=== PATIENT | female | born 1940 | race Caucasian/White ===

== ENCOUNTER 2018-04-16 00:44 | Inpatient (IN) | payer BC, MEDICARE ==
[~2018-04-16] VITALS: Ht 162.6 cm; Wt 70.0 kg
[~2018-04-16 00:44] MED LIST: OXYC15TA2 PO; PREG75CA PO
--- NOTE | 2018-04-16 00:47 | NUR ---
PT BIB [facility] FROM HOME. PER PARAMEDICS, PT CALLED HERSELF W/ C/O GENERALIZED PAIN. PER PARAMEDICS HOWEVER, PT IS IN RAPID AFIB W/ RATE IN 180'S.
--- NOTE | 2018-04-16 00:48 | NUR ---
DR OMKAR LI MD AT BEDSIDE FOR MSE.
[2018-04-16] MEDS ORDERED: IV NORMAL SALINE 1000 ML BAG IV ONE (01:00)
[2018-04-16 01:09] LABS: BASOPHILS % (AUTO) 0.2 % (0.0-2.0); EOSINOPHILS % (AUTO) 0.1 % (0.0-7.0); HEMATOCRIT 36.2 % (31.2-41.9); HEMOGLOBIN 11.7 g/dL (10.9-14.3); LYMPHOCYTES # (AUTO) 0.7 K/uL (20.0-40.0); LYMPHOCYTES % (AUTO) 4.5 % (20.5-51.5); MEAN CORPUSCULAR HEMOGLOBIN 24.1 uug (24.7-32.8); MEAN CORPUSCULAR HGB CONC 32 g/dL (32.3-35.6); MEAN CORPUSCULAR VOLUME 74.5 fL (75.5-95.3); MONOCYTES # (AUTO) 1.5 K/uL (2.0-10.0); MONOCYTES % (AUTO) 10.5 % (0.0-11.0); NEUTROPHILS # (AUTO) 12.1 K/uL (1.8-8.9); NEUTROPHILS % (AUTO) 84.7 % (38.5-71.5); PLATELET COUNT (AUTO) 222 K/uL (179-408); RED BLOOD CELL COUNT(AUTO) 4.86 MIL/uL (3.63-4.92); WHITE BLOOD COUNT (AUTO) 14.3 K/uL (3.8-11.8)
[2018-04-16 01:16] LABS: LYMPHOCYTES % (MANUAL) 5 % (20-40); MONOCYTES % (MANUAL) 10 % (2-10); NEUTROPHILS % (MANUAL) 85 % (42-75)
[2018-04-16 01:33] LABS: ALANINE AMINOTRANSFERASE 29 U/L (14-59); ALKALINE PHOSPHATASE 192 U/L (50-136); ASPARTATE AMINOTRANSFERASE 32 U/L (15-37); BILIRUBIN,DIRECT 0.5 mg/dL (0.0-0.2); BILIRUBIN,TOTAL 0.9 mg/dL (0.2-1.0); CARBON DIOXIDE 21 mmol/L (21-32); CHLORIDE 99 mmol/L (98-107); CREATININE 1.2 mg/dL (0.6-1.3); GLUCOSE 86 mg/dL (74-106); TOTAL PROTEIN, SERUM 6.4 g/dL (6.4-8.2); UREA NITROGEN, BLOOD 36 mg/dL (7-18)
[2018-04-16 01:36] LABS: POTASSIUM 2.6 mmol/L (3.5-5.1)
[2018-04-16] MEDS ORDERED: DILTIAZEM HCL 25 MG IV ONE ×2 (01:43→02:45)
[2018-04-16] MEDS ORDERED: DILTIAZEM HCL 25 MG IV IV ONE ×2 (01:45→02:30)
[2018-04-16] MEDS ORDERED: POTASSIUM CHLORIDE 20 MEQ TAB.PRT.SR PO ONE (01:45)
[2018-04-16] MEDS ORDERED: POTASSIUM CHLORIDE 20 MEQ TAB.PRT.SR ONE (01:50)
--- NOTE | 2018-04-16 01:58 | NUR ---
PT YELLING PROFANITIES AND VERBALLY ABUSING STAFF. PT ALSO RIPPED OUT IV. AWARE.
--- NOTE | 2018-04-16 02:00 | NUR ---
PATIENT DENIES TAKING ANY PRESCRIPTION MEDICATIONS
[2018-04-16] MEDS ORDERED: AZITHROMYCIN 250 MG TABLET PO ONE (02:30)
[2018-04-16] MEDS ORDERED: CEFTRIAXONE 1 G in IV DEXTROSE 5% 50 ML IV ONE (02:30)
[2018-04-16] MEDS ORDERED: AZITHROMYCIN 250 MG TABLET ONE (02:45)
[2018-04-16] MEDS ORDERED: CEFTRIAXONE 1 G VIAL ONE (02:45)
--- NOTE | 2018-04-16 03:07 | NUR ---
CALL PLACED TO [facility] FOR PANEL. DR CALDERÓN SPEAKING TO DR ESPITIA.
--- NOTE | 2018-04-16 04:01 | NUR ---
Pt. admitted to [facility], under care of Dr. CALDERÓN Belongs List completed
[2018-04-16 04:09] VITALS: BP 99/68
--- NOTE | 2018-04-16 04:10 | NUR ---
Admitted to [facility] status; to CCU # 1 bed. Does not want any of her family contacted of this admission. Read ER MD's & ER nurses notes. Awaiting Dr Dietrich's admission orders.
[2018-04-16] MEDS ORDERED: ONDANSETRON 4 MG/2 ML VIAL IV PRN (06:15)
[2018-04-16] MEDS ORDERED: ACETAMINOPHEN 325 MG TABLET PO PRN (06:15)
--- NOTE | 2018-04-16 06:30 | NUR ---
gurrola cath fr.# 16 inserted aseptically w/ cloudy ina urine. urine specimen sent to lab for ua & c&s.
[2018-04-16] MEDS: MORPHINE SULFATE 2 MG/1 ML DISP.SYRIN IV PRN ×3 (06:32→20:51)
[2018-04-16] MEDS: PANTOPRAZOLE SODIUM 40 MG TABLET.DR PO SCH (06:43)
[2018-04-16 07:19] LABS: BASOPHILS % (AUTO) 0.2 % (0.0-2.0); HEMOGLOBIN 11.5 g/dL (10.9-14.3); LYMPHOCYTES # (AUTO) 0.6 K/uL (20.0-40.0); LYMPHOCYTES % (AUTO) 3.3 % (20.5-51.5); MEAN CORPUSCULAR HEMOGLOBIN 24.1 uug (24.7-32.8); MEAN CORPUSCULAR HGB CONC 32 g/dL (32.3-35.6); MONOCYTES # (AUTO) 1.6 K/uL (2.0-10.0); MONOCYTES % (AUTO) 9.4 % (0.0-11.0); NEUTROPHILS # (AUTO) 15.3 K/uL (1.8-8.9); NEUTROPHILS % (AUTO) 87.1 % (38.5-71.5); PLATELET COUNT (AUTO) 215 K/uL (179-408); WHITE BLOOD COUNT (AUTO) 17.5 K/uL (3.8-11.8)
[2018-04-16 07:22] LABS: *BILIRUBIN,URIN NEGATIVE (NEGATIVE); *BLOOD, URINE 2+ (NEGATIVE); *CLARITY,URINE CLEAR (CLEAR); *COLOR,URINE YELLOW (YELLOW); *KETONES,URINE 1+ (NEGATIVE); *PROTEIN,URINE 1+ (NEGATIVE); *UROBILINOGEN,URINE 0.2 E.U./dl (NORMAL); LEUKOCYTE ESTERASE ,URINE NEGATIVE (NEGATIVE); NITRITE, URINE NEGATIVE (NEGATIVE); UGLUCOSE NEGATIVE (NEGATIVE)
[2018-04-16 07:32] LABS: BACTERIA,URINE FEW /HPF (NONE SEEN); SQUAMOUS EPITHELIAL CELL,UR FEW /HPF (NONE SEEN); WBC,URINE 0-3 /HPF (0-3)
[2018-04-16 07:33] LABS: MUCUS,URINE FEW /LPF (0-FEW)
[2018-04-16 07:40] LABS: CARBON DIOXIDE 21 mmol/L (21-32); CHLORIDE 103 mmol/L (98-107); GLUCOSE 89 mg/dL (74-106); UREA NITROGEN, BLOOD 29 mg/dL (7-18)
[2018-04-16 07:43] LABS: IRON, SERUM 9 ug/dL (50-175)
[2018-04-16 07:47] LABS: ALANINE AMINOTRANSFERASE 31 U/L (14-59); ALKALINE PHOSPHATASE 185 U/L (50-136); ASPARTATE AMINOTRANSFERASE 36 U/L (15-37); BILIRUBIN,TOTAL 0.8 mg/dL (0.2-1.0); CHOLESTEROL 141 mg/dL (<200); HDL CHOLESTEROL 17 mg/dL (40-60); PHOSPHOROUS 2.3 mg/dL (2.5-4.9); TOTAL PROTEIN, SERUM 5.7 g/dL (6.4-8.2); TRIGLYCERIDES 110 MG/DL (30-150)
[2018-04-16 07:48] LABS: THYROID STIMULATING HORMONE 0.099 mIU/mL (0.358-3.740)
[2018-04-16 07:54] LABS: LYMPHOCYTES % (MANUAL) 6 % (20-40); MONOCYTES % (MANUAL) 8 % (2-10); NEUTROPHILS % (MANUAL) 86 % (42-75)
[2018-04-16 08:00] VITALS: BP 111/54
[2018-04-16] MEDS ORDERED: FUROSEMIDE 20 MG/2 ML VIAL IV SCH (09:00)
--- NOTE | 2018-04-16 09:11 | NUR ---
CHRISTINA PETERSON PRIVATE CHEF IN THE UNIT TO SEE PATIENT.
--- NOTE | 2018-04-16 09:28 | NUR ---
INFORMED COLOR MAKER THAT HEART RATE FLUCTUATES BETWEEN 120'S- 130'S. PATIENT IN AFIB. NEXT CARDIZEM DOSE UNTIL 1200. HE WILL WAIT FOR CARDIO TO SEE THE PATIENT AND POSSIBLY PUT HER ON AMIODARONE DRIP IF CARDIZEM HAS NOT BEEN WORKING WHEN IN ER.
[2018-04-16] MEDS: HYDROCODONE/APAP 5-325MG TABLET PO PRN (10:08)
--- NOTE | 2018-04-16 11:27 | NUR ---
RAIL CAR REPAIRMAN IS HERE TO EVALUATE PATIENT IF NEEDS TO BE ON A HOLD.
[2018-04-16] MEDS: DILTIAZEM HCL 30 MG TABLET PO SCH ×2 (11:50→17:51)
[2018-04-16] MEDS: POTASSIUM CHLORIDE 50 ML IV SCH ×4 (11:50→20:52)
[2018-04-16 12:00] VITALS: BP 91/56
--- NOTE | 2018-04-16 12:45 | NUR ---
WOUND CARE NURSE MALCOLM IN THE UNIT. RECOMMENDS SCRAPING FOR SCABIES. INFORMED CHRISTINA FERGUSON. NEW ORDERS IN THE SYSTEM. INFORMED DORINDA AND LEFT MESSAGE THAT ASHA HOYT WILL NEED SCABIES SCRAPING.
--- NOTE | 2018-04-16 12:48 | NUR ---
WOUND CARE CONSULT: PT PRESENTS INDEPENDENT WITH BED MOBILITY. PT HAS RASH WITH LARGE AREAS OF SCRATCH CROFT ON BACK, AND BUTTOCKS WITH TINY SCABS. PT NOTED TO HAVE BLANCHABLE REDNESS TO BUTTOCKS WITH ROUGH SKIN TO BUTTOCKS. RT UPPER BACK HAS RAISED AREA, NONTENDER, NOT RED. FEW SCRATCHES ON UPPER BACK AND SHOULDER AREA. DEFER TO M D/DNP FOR RASH AND RAISED AREA. CURRENT LADAN SCORE IS 22. WILL SEE PRN. RECOMMENDATIONS MADE FOR SKIN PROTECTION. DISCUSSED WITH NURSING STAFF. Addendum: 04/16/18 at 1255 by MALCOLM WRIGHT RN Amended: Links added.
[2018-04-16] MEDS ORDERED: Z GUARD REMEDY PASTE 57 GM TUBE TOP PRN (13:00)
--- NOTE | 2018-04-16 14:01 | NUR ---
Supervisor Photoengraving Consult: SW consult requested by Baggage Handler Eddie Aparicio during morning case management rounds meeting. Dr. Jaydon Villalobos present and aware. 11:05am: SW met with CASINO CHANGE ATTENDANT Alysia to discuss case. 11:15am: SW met with patient in her ICU room. Patient was receptive to meeting with SW and greeted SW appropriately. SW interviewed patient and gathered medical and social history from the patient. Patient is a 78 year old female who lives alone in a house. Patient stated that she is able to walk in her home with a FWW, but is unable to bathe independently and unable to manage her carbonation tester. Patient stated that she has a friend, Day Bell, who visits her once a week, or once every 10 days, and brings her groceries and does some housecleaning for her. Patient stated that she is unable to get into the bathtub/shower and therefore sits on the toilet while Day helps her bathe. Patient stated that she has been suffering from "body aches" and that she fell at home yesterday, however was able to call the paramedics, who brought her in to the hospital. Patient reported hx of multiple falls. According to staff reports, paramedics had stated that they found patient covered in urine and her hygiene was in poor condition. According to nursing reports, skin rashes and possible bug bite abrasions cover patient's back and buttocks. Patient stated that she may have urinated on herself after she fell, however was unable to confirm the other reports. Patient reported not having had medical care for several years and therefore not knowing what medical problems she suffers from except body/join pain. Patient stated she is currently not taking any prescription medication. Patient reported no history of illegal drug or alcohol use, however reported that many years ago she did abuse pain medications. No SI or HI present. Hx of previous hospitalizations (see medical records). When SW inquired about these hospitalizations, patient expressed not remembering them. Patient alert, able to provide accurate history. Patient reported that she is a , had one daughter and one grandson who are , however has 2 granddaughters who are listed as emergency contacts. Patient stated contacting granddaughter Radha Smith [phone] for emergencies and care coordination. SW generated a discussion to explore patient's discharge plans, and patient expressed concern about being able to continue to live at home alone. Patient stated that she feels it may be time for her to consider placement in a SNF or assisted living facility. Patient stated that she receives about $1400/month from social security, and also has a small pension. SW offered for patient to meet with the complex case manager in order to discuss placement options and patient expressed agreement. SW to refer to complex case manager Donna for discharge planning. SW to also make an APS referral for self-neglect. 11:45am: MARQUIS met with complex case manager Donna and discussed all above with her. Donna to meet with patient and coordinate with family for discharge planning options. MARQUIS also informed Baggage Handler Eddie Aparicio of above plan, and that SW will be making APS report. Eddie was in agreement.
--- NOTE | 2018-04-16 15:24 | NUR ---
called frank to notify that there is not anyone available to do scabies scraping today. waiting for call back regarding if he wants to treat the patient or wait until the patient can have scraping procedure done
--- NOTE | 2018-04-16 15:25 | NUR ---
APS report completed by this SW. Report # [id number].
[2018-04-16 15:59] VITALS: BP 91/47
[2018-04-16] MEDS ORDERED: NEUTRA PHOS PACKET PO ONE (16:30)
--- NOTE | 2018-04-16 17:56 | NUR ---
POTASSIUM NEEDED TO BE INFUSED VERY SLOW DUE TO PATIENT COMPLAINING OF IRRITATION UPON INFUSION AT 50ML/HR. POTASSIUM RUNNING AT 15ML/HR.
--- NOTE | 2018-04-16 17:58 | NUR ---
PATIENT COMPLAINING OF ITCHING ELIMITE TREATMENT APPLIED AT THIS TIME.
[2018-04-16] MEDS ORDERED: IV NS 1000 ML 1,000 ML IV ONE (19:30)
[2018-04-16 20:00] VITALS: BP 91/56
[2018-04-16] MEDS: CEFTRIAXONE 1 G in IV DEXTROSE 5% 50 ML IV SCH (20:52)
[2018-04-16] MEDS: AZITHROMYCIN IV 500 MG in IV DEXTROSE 5% 250 ML IV SCH (20:52)
[2018-04-16] MEDS: Z GUARD REMEDY PASTE 57 GM TUBE TOP SCH (20:53)
[2018-04-16] MEDS ORDERED: PERMETHRIN 5% CREAM 60 GM TUBE TP ONE (21:00)
[2018-04-16] MEDS: IV NS 1000 ML 1,000 ML IV PRN (22:01)
[2018-04-17] VITALS (7 sets, daily range): BP systolic 97–120; BP diastolic 48–72
[2018-04-17] MEDS: DILTIAZEM HCL 30 MG TABLET PO SCH ×5 (00:14→17:16)
[2018-04-17] MEDS: MORPHINE SULFATE 2 MG/1 ML DISP.SYRIN IV PRN ×3 (03:34→19:44)
[2018-04-17 05:11] LABS: BASOPHILS % (AUTO) 0.1 % (0.0-2.0); EOSINOPHILS # (AUTO) 0.1 K/uL (0.0-0.7); EOSINOPHILS % (AUTO) 0.4 % (0.0-7.0); HEMATOCRIT 31.2 % (31.2-41.9); HEMOGLOBIN 10.1 g/dL (10.9-14.3); LYMPHOCYTES # (AUTO) 0.9 K/uL (20.0-40.0); LYMPHOCYTES % (AUTO) 6.7 % (20.5-51.5); MEAN CORPUSCULAR HEMOGLOBIN 24.1 uug (24.7-32.8); MEAN CORPUSCULAR HGB CONC 32 g/dL (32.3-35.6); MEAN CORPUSCULAR VOLUME 74.7 fL (75.5-95.3); MONOCYTES # (AUTO) 1.4 K/uL (2.0-10.0); MONOCYTES % (AUTO) 10.3 % (0.0-11.0); NEUTROPHILS # (AUTO) 11.3 K/uL (1.8-8.9); NEUTROPHILS % (AUTO) 82.5 % (38.5-71.5); PLATELET COUNT (AUTO) 181 K/uL (179-408); RED BLOOD CELL COUNT(AUTO) 4.18 MIL/uL (3.63-4.92); WHITE BLOOD COUNT (AUTO) 13.7 K/uL (3.8-11.8)
[2018-04-17 05:18] LABS: CARBON DIOXIDE 22 mmol/L (21-32); CHLORIDE 103 mmol/L (98-107); CREATININE 0.8 mg/dL (0.6-1.3); GLUCOSE 93 mg/dL (74-106); POTASSIUM 3.3 mmol/L (3.5-5.1); UREA NITROGEN, BLOOD 26 mg/dL (7-18)
[2018-04-17 06:08] LABS: BAND % (MANUAL) 1 % (0-10); EOSINOPHILS % (MANUAL) 1 % (0-8); LYMPHOCYTES % (MANUAL) 6 % (20-40); MONOCYTES % (MANUAL) 10 % (2-10); NEUTROPHILS % (MANUAL) 82 % (42-75)
[2018-04-17] MEDS: PANTOPRAZOLE SODIUM 40 MG TABLET.DR PO SCH (06:37)
[2018-04-17] MEDS: Z GUARD REMEDY PASTE 57 GM TUBE TOP SCH ×2 (08:25→20:34)
[2018-04-17] MEDS: HYDROCODONE/APAP 5-325MG TABLET PO PRN ×3 (08:28→21:49)
--- NOTE | 2018-04-17 10:15 | NUR ---
RECEIVED PT FROM CCU, A&O TIMES 3. PT IS NOTED WITH A BARREL CHEST, NO IMMEDIATE S/S OF PAIN, OR DISTRESS, NOTED ACCESSORY MUSCLE USE. PT IS DOWN GRADED TO [facility]. ROSALES CATH IN PLACE
[2018-04-17] MEDS: POTASSIUM CHLORIDE 50 ML IV SCH ×4 (12:56→16:34)
[2018-04-17] MEDS: IV NS 1000 ML 1,000 ML IV PRN (13:01)
--- NOTE | 2018-04-17 17:00 | NUR ---
PT HAS BEEN GRADED TO TELE BY DR NAIR.
--- NOTE | 2018-04-17 19:42 | NUR ---
PT HAS BEEN COMPLIANT WITH NURSING CARE AND MEDICATIONS. NO IMMEDIATE S/S OF SOB, OR DISTRESS.
--- NOTE | 2018-04-17 19:44 | NUR ---
PATIENT CALLED REQUESTING FOR PAIN MEDS . PER PATIENT HER BACK /KNEES AND HIP HURTS LEVEL OF 8 OVER 10 , GIVEN NORCO TOLERATED WITH WATER ,TURNED AND REPOSITION PATIENT TOA COMFORTABLE POSITION HOB UP . NO RESPIRATORY DISTRESS NTOES TOLERATING 02 NASAL CANNULA IVF IN PROGRESS VIA THE RIGHT AC NORMAL SALINE AT 75 ML/HR . F/C TO BSD WITH YELLOWISH URINE . CALL [facility] AND ADVISED PATIENT TO CALL FOR HELP AND NOT TO GET OOB BY SELF ,PATIENT VERBALIZED UNDERSTANDING .
[2018-04-17] MEDS: CEFTRIAXONE 1 G in IV DEXTROSE 5% 50 ML IV SCH (20:32)
[2018-04-17] MEDS: AZITHROMYCIN IV 500 MG in IV DEXTROSE 5% 250 ML IV SCH (20:32)
[2018-04-17] MEDS: ZOLPIDEM 5 MG TABLET PO PRN (21:48)
--- NOTE | 2018-04-17 21:48 | NUR ---
PATIENT CALLED AND NEEDS ATTENDED TO , PER PATIENT HER BACK /KNEES AND HIPS HURTING HER AGAIN AND SHES REQUESTING FOR SLEEPING MEDICATION . GIVEN NORCO FOR PAIN PO AND AMBIEN FOR SLEEPING MEDS .AGAIN REPOSITION PATIENT FOR COMFORT ,ASKED FOR ANOTHER BLANKET PROVIDED AND WATER PITCHER FILLED WITH WATER . CALL LIGHT PLACED WITH IN REACH AND ADVISED TO USED .
[2018-04-18] VITALS (7 sets, daily range): BP systolic 102–140; BP diastolic 60–81
[2018-04-18] MEDS: DILTIAZEM HCL 30 MG TABLET PO SCH ×4 (00:25→18:00)
[2018-04-18 05:08] LABS: TRIIODOTHYRONINE, FREE 1.7 pg/mL (2.0-4.4)
[2018-04-18] MEDS: MORPHINE SULFATE 2 MG/1 ML DISP.SYRIN IV PRN ×4 (05:22→22:46)
--- NOTE | 2018-04-18 05:22 | NUR ---
PER PATIETN IS WOKE UP WITH PAIN ,KNEES /BACK AND HIP AREA ,8/10 SHARP PAIN MEEIDCATED WITH MORPHINE PRN . CONTINUE TO MONITOR LEVELS OF PAIN .
[2018-04-18] MEDS: PANTOPRAZOLE SODIUM 40 MG TABLET.DR PO SCH (06:42)
--- NOTE | 2018-04-18 07:40 | NUR ---
RECEIVED PT IN A HIGH ARROYO POSITION SLEEPING. IV HYDRATION RUNNING. NOTED PT REMOVE HER NC. NO IMMEDIATE S/S OF SOB, PAIN, DISTRESS OR DISCOMFORT NOTED
[2018-04-18] MEDS: HYDROCODONE/APAP 5-325MG TABLET PO PRN ×2 (08:39→20:32)
[2018-04-18] MEDS: Z GUARD REMEDY PASTE 57 GM TUBE TOP SCH ×2 (08:45→20:00)
[2018-04-18 09:23] LABS: BASOPHILS % (AUTO) 0.3 % (0.0-2.0); EOSINOPHILS # (AUTO) 0.2 K/uL (0.0-0.7); LYMPHOCYTES # (AUTO) 1.5 K/uL (20.0-40.0); NEUTROPHILS # (AUTO) 10.4 K/uL (1.8-8.9)
[2018-04-18 09:24] LABS: CARBON DIOXIDE 21 mmol/L (21-32); CHLORIDE 102 mmol/L (98-107); CREATININE 0.7 mg/dL (0.6-1.3); GLUCOSE 129 mg/dL (74-106); MAGNESIUM 2.1 mg/dL (1.8-2.4); POTASSIUM 4.4 mmol/L (3.5-5.1); UREA NITROGEN, BLOOD 17 mg/dL (7-18)
[2018-04-18 09:29] LABS: EOSINOPHILS % (AUTO) 1.8 % (0.0-7.0); HEMATOCRIT 35.7 % (31.2-41.9); HEMOGLOBIN 11.4 g/dL (10.9-14.3); MEAN CORPUSCULAR HGB CONC 32 g/dL (32.3-35.6); MEAN CORPUSCULAR VOLUME 75.4 fL (75.5-95.3); MONOCYTES % (AUTO) 7.8 % (0.0-11.0); NEUTROPHILS % (AUTO) 79.1 % (38.5-71.5); PLATELET COUNT (AUTO) 295 K/uL (179-408); RED BLOOD CELL COUNT(AUTO) 4.73 MIL/uL (3.63-4.92); WHITE BLOOD COUNT (AUTO) 13.2 K/uL (3.8-11.8)
--- NOTE | 2018-04-18 11:20 | NUR ---
NEW IV LINE STARTED ON THE RIGHT HAND 22G. PT TOLERATED PROCEDURE WELL. ONE TIME TRY. PT STATED NO PAIN. FLUSHED WELL
[2018-04-18] MEDS: IV NS 1000 ML 1,000 ML IV PRN (11:32)
[2018-04-18] MEDS ORDERED: NEUTRA PHOS PACKET PO ONE (12:00)
--- NOTE | 2018-04-18 19:30 | NUR ---
PT ALERT AWAKE IN NO ACUTE DISTRESS. DENIES ANY PAIN, DISCOMFORT OR SOB AT THIS TIME. YOKER MACHINE OPERATOR SHOWING A-FIB CONTROLLED WITH HR 104. ABLE TO MAKE NEEDS KNOWN. MAINTAINING OXYGEN AT 2L/MIN VIA N/C. F/C INTACT DRAINING WELL. WILL CONTINUE TO MONITOR. CALL LIGHT WITHIN REACH. PT AWARE OF STOOL NEEDED TO BE COLLECTED. BED LOCKED AND LOWERED WITH 2 SIDE RAILS RAISED. CONTACT ISOLATION REMAINED AT THIS TIME. NO INCREASED REDNESS OR TO RASH ON BACKSIDE.
[2018-04-18] MEDS: CEFTRIAXONE 1 G in IV DEXTROSE 5% 50 ML IV SCH (20:01)
[2018-04-18] MEDS: AZITHROMYCIN IV 500 MG in IV DEXTROSE 5% 250 ML IV SCH (20:32)
[2018-04-19] MEDS: HYDROCODONE/APAP 5-325MG TABLET PO PRN ×4 (00:30→20:27)
[2018-04-19] MEDS: DILTIAZEM HCL 30 MG TABLET PO SCH ×4 (00:33→17:37)
[2018-04-19] MEDS: ZOLPIDEM 5 MG TABLET PO PRN (00:35)
[2018-04-19 03:43] VITALS: BP 128/59
[2018-04-19] MEDS: PANTOPRAZOLE SODIUM 40 MG TABLET.DR PO SCH (06:05)
[2018-04-19 06:08] LABS: BASOPHILS % (AUTO) 0.4 % (0.0-2.0); EOSINOPHILS # (AUTO) 0.3 K/uL (0.0-0.7); HEMATOCRIT 32.1 % (31.2-41.9); HEMOGLOBIN 10.4 g/dL (10.9-14.3); LYMPHOCYTES # (AUTO) 1.3 K/uL (20.0-40.0); LYMPHOCYTES % (AUTO) 12.7 % (20.5-51.5); MEAN CORPUSCULAR HEMOGLOBIN 24.4 uug (24.7-32.8); MEAN CORPUSCULAR HGB CONC 33 g/dL (32.3-35.6); MEAN CORPUSCULAR VOLUME 74.9 fL (75.5-95.3); MONOCYTES # (AUTO) 1.2 K/uL (2.0-10.0); MONOCYTES % (AUTO) 11.5 % (0.0-11.0); NEUTROPHILS # (AUTO) 7.7 K/uL (1.8-8.9); NEUTROPHILS % (AUTO) 72.4 % (38.5-71.5); PLATELET COUNT (AUTO) 316 K/uL (179-408); RED BLOOD CELL COUNT(AUTO) 4.28 MIL/uL (3.63-4.92); WHITE BLOOD COUNT (AUTO) 10.6 K/uL (3.8-11.8)
[2018-04-19 06:19] LABS: CARBON DIOXIDE 28 mmol/L (21-32); CHLORIDE 105 mmol/L (98-107); CREATININE 0.9 mg/dL (0.6-1.3); GLUCOSE 113 mg/dL (74-106); UREA NITROGEN, BLOOD 17 mg/dL (7-18)
[2018-04-19] MEDS: MORPHINE SULFATE 2 MG/1 ML DISP.SYRIN IV PRN ×4 (06:28→22:29)
--- NOTE | 2018-04-19 06:53 | NUR ---
PT'S TELEMETRY STILL PRESENT WITH A-FIB CONTROLLED WITH HR 107. STATES CHRONIC PAIN TO KNEES. ABLE TO FOLLOW SIMPLE COMMANDS. NO ADVERSE EFFECT R/T RECENT ATB IV MEDICATIONS. RASH STILL PRESENT WITH SOME SACRAL REDNESS TO BUTTOCKS. PT REPOSITIONED. MAINTAINING OXYGEN AT 2L/MIN 95% O2 SAT. MAINTAINNIG ISOLATION PRECAUTION.
[2018-04-19] MEDS: Z GUARD REMEDY PASTE 57 GM TUBE TOP SCH ×2 (09:06→20:26)
--- NOTE | 2018-04-19 09:50 | NUR ---
RECEIVED HAND OFF REPORT FROM FABRIZIO VALENZUELA. PATIENT ON BED ASLEEP, NO ACUTE DISTRESS NOTED. IV ACCESS ON RIGHT HAND #22 RUNNING IVF OF NS @ 75 CC/HR INFUSING WELL. NO COMPLAINTS OF PAIN AT THIS TIME. ROSALES CATHETER IN PLACE AND DRAINING [place] URINE. ON CONTACT ISOLATION. CALL LIGHT WITHIN REACH WILL CONTINUE TO MONITOR CLOSELY.
[2018-04-19 11:02] VITALS: BP 121/74
[2018-04-19] MEDS: IV NS 1000 ML 1,000 ML IV PRN (11:49)
[2018-04-19 15:10] VITALS: BP 124/72
--- NOTE | 2018-04-19 17:45 | NUR ---
PATIENT NOTED RIGHT HAND #22 IV ACCESS DISLODGED AND UNABLE TO FLUSH SALINE. OLD IV SITE REMOVED AND REINSERTED NEW IV SITE ON THE LEFT WRIST #22, USING ASEPTIC TECHNIQUE. RESUMED IVF INFUSING WELL WILL CONTINUE TO MONITOR JESSICA
--- NOTE | 2018-04-19 18:36 | NUR ---
Patient on bed, in stable condition. on Tele Afib w/ PVC. no complaints of pain/discomfort at this time. kept head of bed elevated to maximize lung expansion and help with breathing. on O2 @ 2lpm via NC. IVF infusing well on left wrist #22. FC in place and draining well. all needs attended and anticipated. call light within reach. will endorse accordingly.
[2018-04-19 20:24] VITALS: BP 129/75
[2018-04-19] MEDS: CEFTRIAXONE 1 G in IV DEXTROSE 5% 50 ML IV SCH (20:26)
--- NOTE | 2018-04-19 20:30 | NUR ---
PATIENT IS AWAKE IN BED, AAOX3 FORGETFUL AT TIMES C/O GENERALIZED PAIN, PAIN MEDS GIVEN ORDERED. PATIENT ON TELE WITH A-FIB RHYTHM AT 96, NO C/O CHEST PAIN OR SOB. SAFETY AND COMFORT MEASURES IN PLACE. CALL LIGHT LEFT WITHIN REACH
[2018-04-19] MEDS: AZITHROMYCIN IV 500 MG in IV DEXTROSE 5% 250 ML IV SCH (21:18)
[2018-04-20 00:06] VITALS: BP 124/88
[2018-04-20] MEDS: DILTIAZEM HCL 30 MG TABLET PO SCH ×4 (00:10→17:15)
[2018-04-20] MEDS: HYDROCODONE/APAP 5-325MG TABLET PO PRN ×3 (02:06→20:25)
[2018-04-20 04:32] VITALS: BP 120/65
[2018-04-20] MEDS: PANTOPRAZOLE SODIUM 40 MG TABLET.DR PO SCH (06:00)
[2018-04-20] MEDS: MORPHINE SULFATE 2 MG/1 ML DISP.SYRIN IV PRN (06:01)
[2018-04-20] MEDS: IV NS 1000 ML 1,000 ML IV PRN ×2 (06:02→20:26)
--- NOTE | 2018-04-20 06:31 | NUR ---
PATIENT SLEPT ON AND OFF THROUGHOUT THE SHIFT, PAIN MEDS WERE GIVEN REQUESTED BY PATIENT. NO ACUTE DISTRESS OR C/O PAIN AT THIS TIME. PATIENT KEPT COMFORTABLE ,SAFETY MEASURES MAINTAINED AT ALL TIMES
[2018-04-20 07:25] LABS: CARBON DIOXIDE 27 mmol/L (21-32); CHLORIDE 106 mmol/L (98-107); CREATININE 0.7 mg/dL (0.6-1.3); GLUCOSE 98 mg/dL (74-106); POTASSIUM 4.9 mmol/L (3.5-5.1); UREA NITROGEN, BLOOD 13 mg/dL (7-18)
[2018-04-20 07:26] LABS: BASOPHILS % (AUTO) 0.5 % (0.0-2.0); EOSINOPHILS # (AUTO) 0.4 K/uL (0.0-0.7); EOSINOPHILS % (AUTO) 3.8 % (0.0-7.0); HEMATOCRIT 32.4 % (31.2-41.9); HEMOGLOBIN 10.5 g/dL (10.9-14.3); LYMPHOCYTES # (AUTO) 1.6 K/uL (20.0-40.0); LYMPHOCYTES % (AUTO) 16.9 % (20.5-51.5); MEAN CORPUSCULAR HEMOGLOBIN 24.5 uug (24.7-32.8); MEAN CORPUSCULAR HGB CONC 32 g/dL (32.3-35.6); MEAN CORPUSCULAR VOLUME 75.8 fL (75.5-95.3); MONOCYTES # (AUTO) 1.1 K/uL (2.0-10.0); MONOCYTES % (AUTO) 11.5 % (0.0-11.0); NEUTROPHILS # (AUTO) 6.4 K/uL (1.8-8.9); NEUTROPHILS % (AUTO) 67.3 % (38.5-71.5); PLATELET COUNT (AUTO) 348 K/uL (179-408); RED BLOOD CELL COUNT(AUTO) 4.27 MIL/uL (3.63-4.92); WHITE BLOOD COUNT (AUTO) 9.5 K/uL (3.8-11.8)
--- NOTE | 2018-04-20 08:00 | NUR ---
AWAKE ALERT AND PLEASANT C/O OF ON AND OFF PAIN HIP AND KNEES RELIEVED WITH PRN MEDS. PATIENT WITH O2 3L NC FOR SLIGHT SOB SATURATING 96%. AFIB ON MONITOR CONTROLLED AND UNCONTROLLED. AWAITING HOSPITALIST REGARDING PLAN OF CARE
[2018-04-20] MEDS: Z GUARD REMEDY PASTE 57 GM TUBE TOP SCH ×2 (08:14→20:49)
[2018-04-20 11:15] VITALS: BP 134/74
[2018-04-20] MEDS ORDERED: MAGNESIUM HYDROXIDE 30 ML LIQUID UDC PO PRN (12:30)
[2018-04-20] MEDS ORDERED: MINERAL OIL FLEET ENEMA 133 ML BOTTLE RC PRN (12:30)
[2018-04-20] MEDS ORDERED: BISACODYL 10 MG SUPP.RECT RC PRN (12:30)
[2018-04-20] MEDS ORDERED: MIRALAX 17 GM POWD.PACK PO PRN (12:30)
--- NOTE | 2018-04-20 14:36 | NUR ---
SEEN BY HOSPITALIST AND DISCUSSED WITH PATIENT REGARDING ORTHO MANAGEMENT/SURGERY SO WITH RESIDENTIAL CARE OFFICER SEE NOTES.
--- NOTE | 2018-04-20 14:38 | NUR ---
CONTINUE WITH PAIN MANAGEMENT, REMAINS A-FIB ON MONITOR SEEN BY PREBOARDER FAMILY CONSUMER SCIENTIST ADJUSTED CARDIAC MEDS SEE NOTES
[2018-04-20 15:35] VITALS: BP 130/71
[2018-04-20] MEDS: CEFTRIAXONE 1 G in IV DEXTROSE 5% 50 ML IV SCH (20:13)
--- NOTE | 2018-04-20 20:30 | NUR ---
PATIENT IS AWAKE IN BED, AAOX4 WITH FORGETFULNESS. SHE C/O GENERALIZED PAIN, PAIN MEDS GIVEN ORDERED. DENIES CHEST PAIN OR SOB. PATIENT ON TELE WITH A-FIB RHYTHM AT 98. SAFETY AND COMFORT MEASURES IN PLACE. WILL CONTINUE TO MONITOR PATIENT
[2018-04-20] MEDS ORDERED: DILTIAZEM HCL SR 60 MG CAP.SR.12H PO SCH (21:00)
[2018-04-20] MEDS ORDERED: AZITHROMYCIN 250 MG TABLET PO SCH (21:00)
[2018-04-20 21:19] VITALS: BP 149/77
[2018-04-20] MEDS ORDERED: DILTIAZEM HCL 60 MG TABLET ONE (21:43)
[2018-04-20] MEDS: ZOLPIDEM 5 MG TABLET PO PRN (22:03)
[2018-04-21] MEDS: DILTIAZEM HCL 30 MG TABLET PO SCH ×4 (00:08→17:28)
[2018-04-21 00:22] VITALS: BP 128/79
[2018-04-21 04:35] VITALS: BP 141/73
[2018-04-21] MEDS: HYDROCODONE/APAP 5-325MG TABLET PO PRN ×3 (05:09→17:29)
[2018-04-21] MEDS: PANTOPRAZOLE SODIUM 40 MG TABLET.DR PO SCH (06:00)
--- NOTE | 2018-04-21 06:34 | NUR ---
PATIENT SLEPT WELL ON THIS SHIFT, SLEEPING PILL GIVEN WITH GOOD EFFECT, NO C/O CHEST PAIN OR SOB. CONVERTED BACK TO SR ME 80. SHE HAD EXTRA LARGE BM ON THIS SHIFT. NO ACUTE DISTRESS AT PRESENT, PAIN MEDS GIVEN ORDERED. NO FURTHER CHANGES IN STATUS AT THIS TIME.
[2018-04-21 06:47] LABS: CARBON DIOXIDE 29 mmol/L (21-32); CHLORIDE 106 mmol/L (98-107); CREATININE 0.7 mg/dL (0.6-1.3); GLUCOSE 107 mg/dL (74-106); MAGNESIUM 2.1 mg/dL (1.8-2.4); PHOSPHOROUS 3.4 mg/dL (2.5-4.9); POTASSIUM 3.8 mmol/L (3.5-5.1); UREA NITROGEN, BLOOD 12 mg/dL (7-18)
[2018-04-21 06:53] LABS: BASOPHILS % (AUTO) 0.4 % (0.0-2.0); EOSINOPHILS # (AUTO) 0.3 K/uL (0.0-0.7); EOSINOPHILS % (AUTO) 3.1 % (0.0-7.0); HEMATOCRIT 31.1 % (31.2-41.9); HEMOGLOBIN 10.1 g/dL (10.9-14.3); LYMPHOCYTES # (AUTO) 1.4 K/uL (20.0-40.0); MEAN CORPUSCULAR HEMOGLOBIN 24.3 uug (24.7-32.8); MEAN CORPUSCULAR HGB CONC 33 g/dL (32.3-35.6); MEAN CORPUSCULAR VOLUME 74.8 fL (75.5-95.3); MONOCYTES % (AUTO) 9.4 % (0.0-11.0); NEUTROPHILS # (AUTO) 7.7 K/uL (1.8-8.9); NEUTROPHILS % (AUTO) 74.1 % (38.5-71.5); PLATELET COUNT (AUTO) 353 K/uL (179-408); RED BLOOD CELL COUNT(AUTO) 4.16 MIL/uL (3.63-4.92); WHITE BLOOD COUNT (AUTO) 10.4 K/uL (3.8-11.8)
[2018-04-21 07:43] LABS: *OCCULT BLOOD STOOL NEGATIVE (NEGATIVE)
[2018-04-21 08:16] LABS: EOSINOPHILS % (MANUAL) 2 % (0-8); LYMPHOCYTES % (MANUAL) 12 % (20-40); METAMYELOCYTES % 1 % (0-1); MONOCYTES % (MANUAL) 5 % (2-10); NEUTROPHILS % (MANUAL) 80 % (42-75)
[2018-04-21] MEDS: Z GUARD REMEDY PASTE 57 GM TUBE TOP SCH (09:03)
--- NOTE | 2018-04-21 09:30 | NUR ---
PMEDICATED PO FOR C/O PAIN ORDERED SHE IS ALERT AND ORIENTED PER THE CHARGE PATIENT HAS BEEN TREATED FOR SCABIES AND DOES NOT NEED ISOLATION ANYMORE.
[2018-04-21 11:30] VITALS: BP 122/62
--- NOTE | 2018-04-21 15:00 | NUR ---
NEW ORDER NOTED TO DISCHARGE PATIENT TO [facility] TOP PRECIPITATOR OPERATOR HELPER AWARE.
[2018-04-21 15:48] VITALS: BP 139/74
[2018-04-21 17:28] VITALS: BP 130/72
--- NOTE | 2018-04-21 18:00 | NUR ---
CALLED [facility] SPOKE WITH BEST AND REPORT GIVEN TO HER FOR CONTINUING CARE.PATIENT AWARE THAT SHE WILL BE TRANSFERED TO [facility] TODAY STATED THAT SHE ALREADY CALLED HER SON IN [place] AND NOTIFIED HIM.
--- NOTE | 2018-04-21 18:30 | NUR ---
PATIENT DISCHARGED PICKED UP BY THE AMBULANCE IN SATISFACTORY CONDITION WITH ALL HER PERSONAL CONDITION AND PRESCRIPTIONS.[facility] REMOVED.
== END 2018-04-21 18:30 | DRG 193 ==
LOC: ER 00:49 → CCU 03:00 → TELE-TD 04-17 10:08 → TELE 04-17 17:26
PROVIDERS: ADMIT Internal Medicine; ATTEND Internal Medicine
DX: J15.9 Unspecified bacterial pneumonia (principal); E43 Unspecified severe protein-calorie malnutrition; S73.001A Unspecified subluxation of right hip, initial encounter; E87.1 Hypo-osmolality and hyponatremia; I50.32 Chronic diastolic (congestive) heart failure; J44.0 Chronic obstructive pulmonary disease with (acute) lower respiratory infection; J90 Pleural effusion, not elsewhere classified; L02.212 Cutaneous abscess of back [any part, except buttock and flank]; J98.11 Atelectasis; M87.851 Other osteonecrosis, right femur; I48.0 Paroxysmal atrial fibrillation; E05.90 Thyrotoxicosis, unspecified without thyrotoxic crisis or storm; E83.39 Other disorders of phosphorus metabolism; E83.51 Hypocalcemia; G30.9 Alzheimer's disease, unspecified; F02.80 Dementia in other diseases classified elsewhere, unspecified severity, without behavioral disturbance, psychotic disturbance, mood disturbance, and anxiety; Z87.891 Personal history of nicotine dependence; Z96.643 Presence of artificial hip joint, bilateral; E87.6 Hypokalemia; Z91.81 History of falling; M19.90 Unspecified osteoarthritis, unspecified site; M17.0 Bilateral primary osteoarthritis of knee; I49.5 Sick sinus syndrome; R74.8 Abnormal levels of other serum enzymes; E88.09 Other disorders of plasma-protein metabolism, not elsewhere classified; Z98.890 Other specified postprocedural states; L25.9 Unspecified contact dermatitis, unspecified cause; K80.20 Calculus of gallbladder without cholecystitis without obstruction; K44.9 Diaphragmatic hernia without obstruction or gangrene; N20.0 Calculus of kidney; D17.79 Benign lipomatous neoplasm of other sites; M85.851 Other specified disorders of bone density and structure, right thigh; M94.8X5 Other specified disorders of cartilage, thigh; R32 Unspecified urinary incontinence; Z91.14 Patient's other noncompliance with medication regimen; Z68.26 Body mass index [BMI] 26.0-26.9, adult; X58.XXXA Exposure to other specified factors, initial encounter; Y93.9 Activity, unspecified; Y92.009 Unspecified place in unspecified non-institutional (private) residence as the place of occurrence of the external cause
CPT/HCPCS: 36415; 51702; 70030-TC; 71045; 71250; 72170; 73560; 76604; 83550; 83605; 83735; 84100; 84443; 84480; 84481; 85025; 85730; 87040; 87086; 93005; 93307; A4663; C1758; J0456; J0696; J1940; J2270; J3480; J3490; J7030; J7060; Q0144

== ENCOUNTER 2018-05-17 12:11 | Inpatient (IN) | payer MEDICARE ==
[~2018-05-17] VITALS: Ht 177.8 cm; Wt 76.0 kg
[2018-05-17] VITALS (8 sets, daily range): BP systolic 116–139; BP diastolic 56–81
[2018-05-17] MEDS ORDERED: DILTIAZEM HCL 25 MG IV ONE (12:42)
[2018-05-17] MEDS ORDERED: DILT60TA35 PO (12:44)
[2018-05-17] MEDS ORDERED: ZOLP5TAB2 PO (12:44)
[2018-05-17] MEDS ORDERED: ACET-2154 PO (12:44)
[2018-05-17] MEDS ORDERED: MAGN400O6 PO (12:44)
[2018-05-17] MEDS ORDERED: HYDR-3326 PO (12:44)
[2018-05-17] MEDS ORDERED: RIVA10TA PO (12:44)
[2018-05-17] MEDS ORDERED: MENT71OI TP (12:44)
[2018-05-17] MEDS ORDERED: DILTIAZEM HCL 25 MG IV IV ONE (12:45)
[2018-05-17 12:51] LABS: BASOPHILS # (AUTO) 0.1 K/uL (0.0-8.0); BASOPHILS % (AUTO) 0.6 % (0.0-2.0); EOSINOPHILS # (AUTO) 0.2 K/uL (0.0-0.7); EOSINOPHILS % (AUTO) 0.9 % (0.0-7.0); HEMATOCRIT 35.7 % (31.2-41.9); HEMOGLOBIN 11.3 g/dL (10.9-14.3); LYMPHOCYTES # (AUTO) 1.5 K/uL (20.0-40.0); LYMPHOCYTES % (AUTO) 8.8 % (20.5-51.5); MEAN CORPUSCULAR HEMOGLOBIN 24.3 uug (24.7-32.8); MEAN CORPUSCULAR HGB CONC 32 g/dL (32.3-35.6); MEAN CORPUSCULAR VOLUME 76.7 fL (75.5-95.3); MONOCYTES # (AUTO) 1.7 K/uL (2.0-10.0); MONOCYTES % (AUTO) 9.7 % (0.0-11.0); NEUTROPHILS # (AUTO) 13.8 K/uL (1.8-8.9); PLATELET COUNT (AUTO) 755 K/uL (179-408); RED BLOOD CELL COUNT(AUTO) 4.66 MIL/uL (3.63-4.92); WHITE BLOOD COUNT (AUTO) 17.2 K/uL (3.8-11.8)
[2018-05-17 13:03] LABS: CARBON DIOXIDE 27 mmol/L (21-32); CHLORIDE 100 mmol/L (98-107); CREATININE 0.7 mg/dL (0.6-1.3); GLUCOSE 122 mg/dL (74-106); POTASSIUM 4.5 mmol/L (3.5-5.1); UREA NITROGEN, BLOOD 20 mg/dL (7-18)
[2018-05-17] MEDS ORDERED: PIPERACILLIN SODIUM/TAZOBACTAM 3.375 G in IV DEXTROSE 5% 50 ML IV ONE (13:15)
[2018-05-17] MEDS ORDERED: VANCOMYCIN IV 1,000 MG in IV DEXTROSE 5% 250 ML IV ONE (13:15)
[2018-05-17] MEDS ORDERED: HYDROCODONE/APAP 5-325MG TABLET PO ONE (13:15)
[2018-05-17] MEDS ORDERED: HYDROCODONE/APAP 5-325MG TABLET ONE (13:23)
[2018-05-17] MEDS ORDERED: PIPERACILLIN/TAZOBACTAM/D5W 50 ML IV ONE (13:24)
[2018-05-17] MEDS ORDERED: VANCOMYCIN IV 200 ML ONE (13:24)
[2018-05-17] MEDS ORDERED: FUROSEMIDE 20 MG/2 ML VIAL IV ONE (13:30)
[2018-05-17 13:31] LABS: BILIRUBIN,DIRECT 0.2 mg/dL (0.0-0.2); BILIRUBIN,TOTAL 0.4 mg/dL (0.1-1.0)
[2018-05-17 13:32] LABS: TOTAL PROTEIN, SERUM 6.7 g/dL (6.4-8.2)
[2018-05-17] MEDS ORDERED: FUROSEMIDE 40 MG/4 ML VIAL ONE (14:13)
[2018-05-17 14:27] LABS: *BILIRUBIN,URIN NEGATIVE (NEGATIVE); *BLOOD, URINE NEGATIVE (NEGATIVE); *COLOR,URINE DARK YELLOW (YELLOW); *KETONES,URINE NEGATIVE (NEGATIVE); *PROTEIN,URINE TRACE (NEGATIVE); *UROBILINOGEN,URINE 0.2 E.U./dl (NORMAL); LEUKOCYTE ESTERASE ,URINE TRACE (NEGATIVE); NITRITE, URINE NEGATIVE (NEGATIVE); UGLUCOSE NEGATIVE (NEGATIVE)
[2018-05-17 14:38] LABS: *CLARITY,URINE SLIGHTLY HAZY (CLEAR)
[2018-05-17 14:39] LABS: SQUAMOUS EPITHELIAL CELL,UR MODERATE /HPF (NONE SEEN); URINE AMORPHOUS PHOSPHATES FEW /HPF; WBC,URINE 0-3 /HPF (0-3)
[2018-05-17 14:40] LABS: MUCUS,URINE FEW /LPF (0-FEW)
[2018-05-17] MEDS ORDERED: ACETAMINOPHEN 325 MG TABLET PO PRN (16:30)
[2018-05-17] MEDS ORDERED: LEVALBUTEROL HCL NEB 0.63 MG/3 ML NEBU NEB PRN (16:30)
[2018-05-17] MEDS ORDERED: AMIODARONE HCL IV 900 MG in IV DEXTROSE 5% 482 ML IV PRN (16:45)
[2018-05-17] MEDS: MORPHINE SULFATE 2 MG/1 ML DISP.SYRIN IV PRN ×2 (16:57→21:59)
[2018-05-17] MEDS ORDERED: AMIODARONE HCL IV 150 MG in IV DEXTROSE 5% 100 ML IV ONE (17:15)
[2018-05-17] MEDS ORDERED: RIVAROXABAN 10 MG TABLET PO SCH (18:00)
[2018-05-17] MEDS ORDERED: DOCUSATE SODIUM 250 MG CAPSULE PO SCH (21:00)
[2018-05-17] MEDS: PIPERACILLIN/TAZOBACTAM/D5W 3.375 G in PREMIXED 1 EACH IV SCH (21:50)
[2018-05-17] MEDS: DOCUSATE SODIUM 100 MG CAPSULE PO SCH (21:50)
[2018-05-18] VITALS (24 sets, daily range): BP systolic 100–142; BP diastolic 57–86
[2018-05-18] MEDS: ZOLPIDEM 5 MG TABLET PO PRN ×2 (00:03→22:16)
[2018-05-18] MEDS: ONDANSETRON 4 MG/2 ML VIAL IV PRN ×2 (00:03→09:06)
[2018-05-18] MEDS: MORPHINE SULFATE 2 MG/1 ML DISP.SYRIN IV PRN (02:15)
[2018-05-18 05:10] LABS: BASOPHILS # (AUTO) 0.1 K/uL (0.0-8.0); BASOPHILS % (AUTO) 0.7 % (0.0-2.0); EOSINOPHILS # (AUTO) 0.2 K/uL (0.0-0.7); EOSINOPHILS % (AUTO) 1.6 % (0.0-7.0); HEMATOCRIT 32.7 % (31.2-41.9); HEMOGLOBIN 10.6 g/dL (10.9-14.3); LYMPHOCYTES # (AUTO) 1.1 K/uL (20.0-40.0); LYMPHOCYTES % (AUTO) 9.3 % (20.5-51.5); MEAN CORPUSCULAR HEMOGLOBIN 24.4 uug (24.7-32.8); MEAN CORPUSCULAR HGB CONC 33 g/dL (32.3-35.6); MEAN CORPUSCULAR VOLUME 74.9 fL (75.5-95.3); MONOCYTES # (AUTO) 1.3 K/uL (2.0-10.0); MONOCYTES % (AUTO) 10.8 % (0.0-11.0); NEUTROPHILS # (AUTO) 9.4 K/uL (1.8-8.9); NEUTROPHILS % (AUTO) 77.6 % (38.5-71.5); PLATELET COUNT (AUTO) 566 K/uL (179-408); RED BLOOD CELL COUNT(AUTO) 4.36 MIL/uL (3.63-4.92); WHITE BLOOD COUNT (AUTO) 12.1 K/uL (3.8-11.8)
[2018-05-18 05:36] LABS: ALANINE AMINOTRANSFERASE 41 U/L (14-59); ASPARTATE AMINOTRANSFERASE 84 U/L (15-37); CARBON DIOXIDE 29 mmol/L (21-32); CHLORIDE 99 mmol/L (98-107); CREATININE 0.7 mg/dL (0.6-1.3); GLUCOSE 122 mg/dL (74-106); MAGNESIUM 2.2 mg/dL (1.8-2.4); PHOSPHOROUS 4.1 mg/dL (2.5-4.9); POTASSIUM 3.9 mmol/L (3.5-5.1); UREA NITROGEN, BLOOD 18 mg/dL (7-18)
[2018-05-18] MEDS: PIPERACILLIN/TAZOBACTAM/D5W 3.375 G in PREMIXED 1 EACH IV SCH ×3 (05:42→21:17)
[2018-05-18 06:28] LABS: LYMPHOCYTES % (MANUAL) 7 % (20-40); MONOCYTES % (MANUAL) 8 % (2-10); NEUTROPHILS % (MANUAL) 85 % (42-75)
[2018-05-18] MEDS: PANTOPRAZOLE SODIUM 40 MG TABLET.DR PO SCH (06:30)
[2018-05-18 06:33] LABS: ALKALINE PHOSPHATASE 1050 U/L (50-136)
[2018-05-18] MEDS ORDERED: HYDROCODONE/APAP 5-325MG TABLET PO PRN (10:45)
[2018-05-18] MEDS: HYDROCODONE/APAP 5-325MG TABLET PO PRN ×3 (14:10→21:35)
[2018-05-18] MEDS: VANCOMYCIN IV 1 G in PREMIXED 0 EACH IV SCH (15:00)
[2018-05-18] MEDS: DOCUSATE SODIUM 100 MG CAPSULE PO SCH (21:17)
[2018-05-18] MEDS: AMIODARONE HCL 200 MG TABLET PO SCH (21:17)
[2018-05-19] VITALS (39 sets, daily range): BP systolic 87–155; BP diastolic 32–98
[2018-05-19] MEDS: HYDROCODONE/APAP 5-325MG TABLET PO PRN ×5 (03:00→20:03)
[2018-05-19 05:15] LABS: BASOPHILS # (AUTO) 0.1 K/uL (0.0-8.0); BASOPHILS % (AUTO) 1.1 % (0.0-2.0); EOSINOPHILS # (AUTO) 0.3 K/uL (0.0-0.7); EOSINOPHILS % (AUTO) 2.5 % (0.0-7.0); HEMATOCRIT 29.5 % (31.2-41.9); HEMOGLOBIN 9.6 g/dL (10.9-14.3); LYMPHOCYTES # (AUTO) 0.9 K/uL (20.0-40.0); LYMPHOCYTES % (AUTO) 8.8 % (20.5-51.5); MEAN CORPUSCULAR HEMOGLOBIN 24.8 uug (24.7-32.8); MEAN CORPUSCULAR HGB CONC 33 g/dL (32.3-35.6); MEAN CORPUSCULAR VOLUME 75.8 fL (75.5-95.3); MONOCYTES # (AUTO) 1.2 K/uL (2.0-10.0); NEUTROPHILS # (AUTO) 7.7 K/uL (1.8-8.9); NEUTROPHILS % (AUTO) 75.6 % (38.5-71.5); PLATELET COUNT (AUTO) 481 K/uL (179-408); WHITE BLOOD COUNT (AUTO) 10.2 K/uL (3.8-11.8)
[2018-05-19 05:24] LABS: ALANINE AMINOTRANSFERASE 31 U/L (14-59); ALKALINE PHOSPHATASE 861 U/L (50-136); ASPARTATE AMINOTRANSFERASE 39 U/L (15-37); BILIRUBIN,TOTAL 0.4 mg/dL (0.2-1.0); CARBON DIOXIDE 31 mmol/L (21-32); CHLORIDE 98 mmol/L (98-107); CREATININE 0.8 mg/dL (0.6-1.3); GLUCOSE 103 mg/dL (74-106); MAGNESIUM 2.2 mg/dL (1.8-2.4); PHOSPHOROUS 3.2 mg/dL (2.5-4.9); POTASSIUM 3.5 mmol/L (3.5-5.1); TOTAL PROTEIN, SERUM 5.7 g/dL (6.4-8.2); UREA NITROGEN, BLOOD 15 mg/dL (7-18)
[2018-05-19] MEDS: PIPERACILLIN/TAZOBACTAM/D5W 3.375 G in PREMIXED 1 EACH IV SCH ×3 (05:27→21:32)
[2018-05-19] MEDS: PANTOPRAZOLE SODIUM 40 MG TABLET.DR PO SCH (06:18)
[2018-05-19] MEDS: ONDANSETRON 4 MG/2 ML VIAL IV PRN (08:28)
[2018-05-19] MEDS: AMIODARONE HCL 200 MG TABLET PO SCH ×2 (08:28→20:23)
[2018-05-19] MEDS ORDERED: ALBUTEROL SULFATE 1.25 MG/3 ML NEBU NEB PRN (09:15)
[2018-05-19] MEDS: VANCOMYCIN IV 1 G in PREMIXED 0 EACH IV SCH (13:56)
[2018-05-19] MEDS ORDERED: LIDOCAINE HCL 1% 20 ML VIAL IJ PRN (14:00)
[2018-05-19] MEDS ORDERED: HYDROCODONE/APAP 5-325MG TABLET PO ONE (15:30)
[2018-05-19] MEDS: DOCUSATE SODIUM 100 MG CAPSULE PO SCH (20:20)
[2018-05-19] MEDS: ZOLPIDEM 5 MG TABLET PO PRN (22:49)
[2018-05-20] VITALS (12 sets, daily range): BP systolic 104–136; BP diastolic 59–77
[2018-05-20] MEDS: HYDROCODONE/APAP 5-325MG TABLET PO PRN ×3 (02:15→06:39)
[2018-05-20] MEDS: PIPERACILLIN/TAZOBACTAM/D5W 3.375 G in PREMIXED 1 EACH IV SCH ×3 (05:28→21:11)
[2018-05-20] MEDS ORDERED: Z GUARD REMEDY PASTE 57 GM TUBE TOP PRN (05:45)
[2018-05-20 05:56] LABS: BASOPHILS # (AUTO) 0.1 K/uL (0.0-8.0); EOSINOPHILS # (AUTO) 0.2 K/uL (0.0-0.7); EOSINOPHILS % (AUTO) 1.5 % (0.0-7.0); HEMATOCRIT 25.7 % (31.2-41.9); HEMOGLOBIN 8.5 g/dL (10.9-14.3); LYMPHOCYTES # (AUTO) 1.1 K/uL (20.0-40.0); LYMPHOCYTES % (AUTO) 10.1 % (20.5-51.5); MEAN CORPUSCULAR HEMOGLOBIN 25.2 uug (24.7-32.8); MEAN CORPUSCULAR HGB CONC 33 g/dL (32.3-35.6); MEAN CORPUSCULAR VOLUME 76.5 fL (75.5-95.3); MONOCYTES # (AUTO) 1.1 K/uL (2.0-10.0); NEUTROPHILS # (AUTO) 8.4 K/uL (1.8-8.9); NEUTROPHILS % (AUTO) 77.4 % (38.5-71.5); PLATELET COUNT (AUTO) 397 K/uL (179-408); RED BLOOD CELL COUNT(AUTO) 3.36 MIL/uL (3.63-4.92); WHITE BLOOD COUNT (AUTO) 10.8 K/uL (3.8-11.8)
[2018-05-20 06:12] LABS: CARBON DIOXIDE 32 mmol/L (21-32); CHLORIDE 99 mmol/L (98-107); CREATININE 0.8 mg/dL (0.6-1.3); GLUCOSE 130 mg/dL (74-106); PHOSPHOROUS 2.7 mg/dL (2.5-4.9); POTASSIUM 3.8 mmol/L (3.5-5.1); UREA NITROGEN, BLOOD 15 mg/dL (7-18)
[2018-05-20] MEDS: PANTOPRAZOLE SODIUM 40 MG TABLET.DR PO SCH (06:30)
[2018-05-20] MEDS: DOCUSATE SODIUM 100 MG CAPSULE PO SCH ×2 (06:30→21:00)
[2018-05-20] MEDS: AMIODARONE HCL 200 MG TABLET PO SCH ×2 (08:39→21:00)
[2018-05-20] MEDS: Z GUARD REMEDY PASTE 57 GM TUBE TOP SCH ×2 (08:42→21:04)
[2018-05-20] MEDS: HYDROCODONE/APAP 10-325 MG TABLET PO PRN ×4 (08:53→21:11)
[2018-05-20] MEDS: VANCOMYCIN IV 1 G in PREMIXED 0 EACH IV SCH (15:28)
[2018-05-20] MEDS: LACTOBACILLUS RHAMNOSUS GG 1 EACH CAPSULE PO SCH (21:00)
[2018-05-21] VITALS: BP 114/77
[2018-05-21] MEDS: ZOLPIDEM 5 MG TABLET PO PRN (00:32)
[2018-05-21] MEDS: HYDROCODONE/APAP 10-325 MG TABLET PO PRN ×6 (01:12→23:12)
[2018-05-21 04:00] VITALS: BP 109/60
[2018-05-21 05:11] LABS: CARBON DIOXIDE 32 mmol/L (21-32); CHLORIDE 100 mmol/L (98-107); CREATININE 0.7 mg/dL (0.6-1.3); GLUCOSE 103 mg/dL (74-106); POTASSIUM 3.8 mmol/L (3.5-5.1); UREA NITROGEN, BLOOD 13 mg/dL (7-18)
[2018-05-21 05:18] LABS: BASOPHILS # (AUTO) 0.1 K/uL (0.0-8.0); BASOPHILS % (AUTO) 1.1 % (0.0-2.0); EOSINOPHILS # (AUTO) 0.4 K/uL (0.0-0.7); EOSINOPHILS % (AUTO) 4.2 % (0.0-7.0); HEMATOCRIT 25.7 % (31.2-41.9); HEMOGLOBIN 8.3 g/dL (10.9-14.3); LYMPHOCYTES # (AUTO) 1.2 K/uL (20.0-40.0); MEAN CORPUSCULAR HEMOGLOBIN 24.6 uug (24.7-32.8); MEAN CORPUSCULAR HGB CONC 32 g/dL (32.3-35.6); MEAN CORPUSCULAR VOLUME 76.4 fL (75.5-95.3); MONOCYTES # (AUTO) 1.1 K/uL (2.0-10.0); MONOCYTES % (AUTO) 11.9 % (0.0-11.0); NEUTROPHILS # (AUTO) 6.6 K/uL (1.8-8.9); NEUTROPHILS % (AUTO) 69.8 % (38.5-71.5); PLATELET COUNT (AUTO) 385 K/uL (179-408); RED BLOOD CELL COUNT(AUTO) 3.36 MIL/uL (3.63-4.92); WHITE BLOOD COUNT (AUTO) 9.4 K/uL (3.8-11.8)
[2018-05-21] MEDS: PIPERACILLIN/TAZOBACTAM/D5W 3.375 G in PREMIXED 1 EACH IV SCH ×3 (05:50→21:58)
[2018-05-21] MEDS: PANTOPRAZOLE SODIUM 40 MG TABLET.DR PO SCH (07:01)
[2018-05-21] MEDS: LACTOBACILLUS RHAMNOSUS GG 1 EACH CAPSULE PO SCH ×2 (08:41→21:57)
[2018-05-21] MEDS: AMIODARONE HCL 200 MG TABLET PO SCH ×2 (08:41→21:58)
[2018-05-21] MEDS: Z GUARD REMEDY PASTE 57 GM TUBE TOP SCH ×2 (08:42→21:57)
[2018-05-21 10:00] VITALS: BP 123/73
[2018-05-21] MEDS: VANCOMYCIN IV 1 G in PREMIXED 0 EACH IV SCH (11:16)
[2018-05-21 17:08] VITALS: BP 124/65
[2018-05-21 19:23] VITALS: BP 133/67
[2018-05-21] MEDS: DOCUSATE SODIUM 100 MG CAPSULE PO SCH (21:57)
[2018-05-21 23:15] VITALS: BP 144/72
[2018-05-22] MEDS: ZOLPIDEM 5 MG TABLET PO PRN ×2 (01:10→23:28)
[2018-05-22 03:18] VITALS: BP 136/73
[2018-05-22] MEDS: PANTOPRAZOLE SODIUM 40 MG TABLET.DR PO SCH (06:14)
[2018-05-22] MEDS: PIPERACILLIN/TAZOBACTAM/D5W 3.375 G in PREMIXED 1 EACH IV SCH ×3 (06:14→21:14)
[2018-05-22] MEDS: HYDROCODONE/APAP 10-325 MG TABLET PO PRN ×4 (06:22→20:13)
[2018-05-22 06:34] LABS: BASOPHILS # (AUTO) 0.1 K/uL (0.0-8.0); BASOPHILS % (AUTO) 1.4 % (0.0-2.0); EOSINOPHILS # (AUTO) 0.5 K/uL (0.0-0.7); EOSINOPHILS % (AUTO) 5.6 % (0.0-7.0); HEMATOCRIT 25.6 % (31.2-41.9); HEMOGLOBIN 8.2 g/dL (10.9-14.3); LYMPHOCYTES # (AUTO) 1.2 K/uL (20.0-40.0); LYMPHOCYTES % (AUTO) 13.4 % (20.5-51.5); MEAN CORPUSCULAR HEMOGLOBIN 24.5 uug (24.7-32.8); MEAN CORPUSCULAR HGB CONC 32 g/dL (32.3-35.6); MEAN CORPUSCULAR VOLUME 76.9 fL (75.5-95.3); MONOCYTES # (AUTO) 1.1 K/uL (2.0-10.0); MONOCYTES % (AUTO) 11.9 % (0.0-11.0); NEUTROPHILS # (AUTO) 6.2 K/uL (1.8-8.9); NEUTROPHILS % (AUTO) 67.7 % (38.5-71.5); PLATELET COUNT (AUTO) 403 K/uL (179-408); RED BLOOD CELL COUNT(AUTO) 3.32 MIL/uL (3.63-4.92); WHITE BLOOD COUNT (AUTO) 9.1 K/uL (3.8-11.8)
[2018-05-22 06:42] LABS: CARBON DIOXIDE 35 mmol/L (21-32); CHLORIDE 104 mmol/L (98-107); CREATININE 0.7 mg/dL (0.6-1.3); GLUCOSE 87 mg/dL (74-106); UREA NITROGEN, BLOOD 9 mg/dL (7-18)
[2018-05-22 07:51] VITALS: BP 134/62
[2018-05-22] MEDS: LACTOBACILLUS RHAMNOSUS GG 1 EACH CAPSULE PO SCH ×2 (08:09→20:13)
[2018-05-22] MEDS: AMIODARONE HCL 200 MG TABLET PO SCH ×2 (08:10→20:13)
[2018-05-22] MEDS: Z GUARD REMEDY PASTE 57 GM TUBE TOP SCH ×2 (08:19→20:15)
[2018-05-22 11:40] VITALS: BP 115/64
[2018-05-22 16:00] VITALS: BP 120/62
[2018-05-22 19:00] VITALS: BP 117/56
[2018-05-22] MEDS: DOCUSATE SODIUM 100 MG CAPSULE PO SCH (20:13)
[2018-05-23] VITALS: BP 126/64
[2018-05-23] MEDS: HYDROCODONE/APAP 10-325 MG TABLET PO PRN ×5 (00:45→20:17)
[2018-05-23 04:00] VITALS: BP 127/60
[2018-05-23] MEDS: PIPERACILLIN/TAZOBACTAM/D5W 3.375 G in PREMIXED 1 EACH IV SCH ×3 (06:14→20:59)
[2018-05-23] MEDS: PANTOPRAZOLE SODIUM 40 MG TABLET.DR PO SCH (06:14)
[2018-05-23] MEDS: LACTOBACILLUS RHAMNOSUS GG 1 EACH CAPSULE PO SCH ×2 (08:12→20:16)
[2018-05-23] MEDS: AMIODARONE HCL 200 MG TABLET PO SCH ×2 (08:12→20:16)
[2018-05-23] MEDS: Z GUARD REMEDY PASTE 57 GM TUBE TOP SCH ×2 (08:16→20:21)
[2018-05-23 11:51] VITALS: BP 118/67
[2018-05-23 15:51] VITALS: BP 115/63
[2018-05-23 19:53] VITALS: BP 134/67
[2018-05-23] MEDS: DOCUSATE SODIUM 100 MG CAPSULE PO SCH (20:20)
[2018-05-24] MEDS: ZOLPIDEM 5 MG TABLET PO PRN ×2 (00:25→23:10)
[2018-05-24] MEDS: HYDROCODONE/APAP 10-325 MG TABLET PO PRN ×6 (00:26→22:05)
[2018-05-24 04:09] VITALS: BP 116/67
[2018-05-24] MEDS: PIPERACILLIN/TAZOBACTAM/D5W 3.375 G in PREMIXED 1 EACH IV SCH ×2 (05:35→13:10)
[2018-05-24] MEDS: PANTOPRAZOLE SODIUM 40 MG TABLET.DR PO SCH (06:43)
[2018-05-24 07:59] VITALS: BP 152/77
[2018-05-24] MEDS: LACTOBACILLUS RHAMNOSUS GG 1 EACH CAPSULE PO SCH ×2 (08:01→20:01)
[2018-05-24] MEDS: AMIODARONE HCL 200 MG TABLET PO SCH ×2 (08:01→20:01)
[2018-05-24] MEDS: Z GUARD REMEDY PASTE 57 GM TUBE TOP SCH ×2 (09:51→20:08)
[2018-05-24 11:40] VITALS: BP 135/65
[2018-05-24 11:42] VITALS: BP 147/78
[2018-05-24 15:37] VITALS: BP 119/59
[2018-05-24 20:04] VITALS: BP 127/64
[2018-05-24] MEDS: DOCUSATE SODIUM 100 MG CAPSULE PO SCH (20:08)
[2018-05-25 04:32] VITALS: BP 124/74
[2018-05-25] MEDS: HYDROCODONE/APAP 10-325 MG TABLET PO PRN ×5 (05:02→22:12)
[2018-05-25 06:19] LABS: BASOPHILS # (AUTO) 0.1 K/uL (0.0-8.0); BASOPHILS % (AUTO) 1.2 % (0.0-2.0); EOSINOPHILS # (AUTO) 0.3 K/uL (0.0-0.7); EOSINOPHILS % (AUTO) 3.7 % (0.0-7.0); HEMATOCRIT 28.3 % (31.2-41.9); HEMOGLOBIN 9.1 g/dL (10.9-14.3); LYMPHOCYTES # (AUTO) 1.2 K/uL (20.0-40.0); LYMPHOCYTES % (AUTO) 13.5 % (20.5-51.5); MEAN CORPUSCULAR HEMOGLOBIN 24.8 uug (24.7-32.8); MEAN CORPUSCULAR HGB CONC 32 g/dL (32.3-35.6); MEAN CORPUSCULAR VOLUME 77.1 fL (75.5-95.3); MONOCYTES % (AUTO) 11.9 % (0.0-11.0); NEUTROPHILS % (AUTO) 69.7 % (38.5-71.5); PLATELET COUNT (AUTO) 414 K/uL (179-408); RED BLOOD CELL COUNT(AUTO) 3.67 MIL/uL (3.63-4.92); WHITE BLOOD COUNT (AUTO) 8.6 K/uL (3.8-11.8)
[2018-05-25] MEDS: PANTOPRAZOLE SODIUM 40 MG TABLET.DR PO SCH (06:20)
[2018-05-25 06:27] LABS: CARBON DIOXIDE 33 mmol/L (21-32); CHLORIDE 102 mmol/L (98-107); CREATININE 0.7 mg/dL (0.6-1.3); GLUCOSE 102 mg/dL (74-106); MAGNESIUM 2.3 mg/dL (1.8-2.4); PHOSPHOROUS 3.7 mg/dL (2.5-4.9); POTASSIUM 3.9 mmol/L (3.5-5.1); UREA NITROGEN, BLOOD 11 mg/dL (7-18)
[2018-05-25] MEDS: AMIODARONE HCL 200 MG TABLET PO SCH ×2 (08:01→20:32)
[2018-05-25] MEDS: LACTOBACILLUS RHAMNOSUS GG 1 EACH CAPSULE PO SCH ×2 (08:01→20:32)
[2018-05-25] MEDS: Z GUARD REMEDY PASTE 57 GM TUBE TOP SCH ×2 (08:01→20:32)
[2018-05-25 11:40] VITALS: BP 123/69
[2018-05-25 15:30] VITALS: BP 115/57
[2018-05-25] MEDS: DOCUSATE SODIUM 100 MG CAPSULE PO SCH (20:32)
[2018-05-25 20:58] VITALS: BP 135/63
[2018-05-25] MEDS: ZOLPIDEM 5 MG TABLET PO PRN (23:35)
[2018-05-26] MEDS: HYDROCODONE/APAP 10-325 MG TABLET PO PRN ×6 (02:07→22:47)
[2018-05-26 03:34] LABS: *BILIRUBIN,URIN NEGATIVE (NEGATIVE); *BLOOD, URINE 2+ (NEGATIVE); *CLARITY,URINE CLEAR (CLEAR); *COLOR,URINE YELLOW (YELLOW); *KETONES,URINE NEGATIVE (NEGATIVE); *PROTEIN,URINE NEGATIVE (NEGATIVE); *UROBILINOGEN,URINE 0.2 E.U./dl (NORMAL); LEUKOCYTE ESTERASE ,URINE NEGATIVE (NEGATIVE); NITRITE, URINE NEGATIVE (NEGATIVE); UGLUCOSE NEGATIVE (NEGATIVE)
[2018-05-26 03:40] LABS: BACTERIA,URINE NONE SEEN /HPF (NONE SEEN); SQUAMOUS EPITHELIAL CELL,UR FEW /HPF (NONE SEEN); WBC,URINE NONE SEEN /HPF (0-3); YEAST,URINE MODERATE /HPF (NONE SEEN)
[2018-05-26] MEDS ORDERED: MORPHINE SULFATE 2 MG/1 ML DISP.SYRIN IV ONE (03:45)
[2018-05-26 04:07] VITALS: BP 97/67
[2018-05-26] MEDS: PANTOPRAZOLE SODIUM 40 MG TABLET.DR PO SCH (06:18)
[2018-05-26] MEDS ORDERED: POLYMYXIN B SULFATE 500,000 UNITS, BACITRACIN 50,000 UNITS, NORMAL SALINE 20 ML MC ONE ×3 (07:15)
[2018-05-26] MEDS ORDERED: VANCOMYCIN 1000 MG VIAL ONE (07:34)
[2018-05-26] MEDS: LACTOBACILLUS RHAMNOSUS GG 1 EACH CAPSULE PO SCH ×2 (09:00→20:00)
[2018-05-26] MEDS: AMIODARONE HCL 200 MG TABLET PO SCH ×2 (09:00→20:00)
[2018-05-26] MEDS ORDERED: FENTANYL CITRATE 100 MCG/2 ML AMPUL ONE ×2 (09:01→11:14)
[2018-05-26] MEDS: Z GUARD REMEDY PASTE 57 GM TUBE TOP SCH ×2 (09:31→20:29)
[2018-05-26 10:24] LABS: ABG BASE EXCESS -0.1 mmol/L; ABG HCO3 22.7 mmol/L; ABG PCO2 28.6 mmHg (35.0-45.0); ABG PH 7.517 (7.350-7.450); ABG PO2 254.8 mmHg (75.0-100.0); ABG SITE A-Line; ABG TOTAL HEMOGLOBIN 6.7 G/dL (12.0-16.0); MetHb 0.3 % (0.0-1.5); O2Hb 98.5 % (94.0-97.0); VENT MODE VENT - A/C; VT, ABG 500 mL
[2018-05-26] MEDS ORDERED: PROPOFOL 200 MG/20 ML BOTTLE IV ONE (10:53)
[2018-05-26] MEDS ORDERED: CEFAZOLIN 1 G VIAL MC ONE (10:53)
[2018-05-26] MEDS ORDERED: ONDANSETRON 4 MG/2 ML VIAL IV ONE (10:53)
[2018-05-26] MEDS ORDERED: SEVOFLURANE 250 ML BOTTLE IH ONE (10:53)
[2018-05-26] MEDS ORDERED: DEXAMETHASONE SOD PHOSPHATE 4 MG INJ IV ONE (10:53)
[2018-05-26] MEDS ORDERED: IV LACTATED RINGERS SOLUTION 1,000 ML BAG IV ONE (10:53)
[2018-05-26 11:08] LABS: HEMATOCRIT 24.2 % (31.2-41.9); HEMOGLOBIN 7.7 g/dL (10.9-14.3)
[2018-05-26] MEDS ORDERED: ONDANSETRON 4 MG/2 ML VIAL ONE (11:39)
[2018-05-26] MEDS ORDERED: HYDROMORPHONE 2 MG/1 ML DISP.SYRIN ONE (11:49)
[2018-05-26] MEDS: POTASSIUM CHLORIDE 20 MEQ in IV D5 1/2 NS 1000 ML 1,000 ML IV PRN (12:30)
[2018-05-26 14:50] VITALS: BP 110/70
[2018-05-26] MEDS: CEFAZOLIN 1 G in PREMIXED 1 EACH IV SCH (16:31)
[2018-05-26 19:48] VITALS: BP 116/72
[2018-05-26] MEDS: DOCUSATE SODIUM 100 MG CAPSULE PO SCH (20:00)
[2018-05-26] MEDS: ZOLPIDEM 5 MG TABLET PO PRN (23:53)
[2018-05-27] VITALS (9 sets, daily range): BP systolic 104–117; BP diastolic 50–75
[2018-05-27] MEDS: CEFAZOLIN 1 G in PREMIXED 1 EACH IV SCH (00:31)
[2018-05-27] MEDS: HYDROCODONE/APAP 10-325 MG TABLET PO PRN ×6 (01:46→19:49)
[2018-05-27] MEDS ORDERED: IV D5W-0.45% NS +20 KCL 1,000 ML IV ONE (04:01)
[2018-05-27] MEDS: POTASSIUM CHLORIDE 20 MEQ in IV D5 1/2 NS 1000 ML 1,000 ML IV PRN (04:02)
[2018-05-27] MEDS: PANTOPRAZOLE SODIUM 40 MG TABLET.DR PO SCH (06:04)
[2018-05-27 06:48] LABS: BASOPHILS # (AUTO) 0.1 K/uL (0.0-8.0); BASOPHILS % (AUTO) 0.8 % (0.0-2.0); EOSINOPHILS # (AUTO) 0.1 K/uL (0.0-0.7); EOSINOPHILS % (AUTO) 0.5 % (0.0-7.0); LYMPHOCYTES # (AUTO) 1.3 K/uL (20.0-40.0); MEAN CORPUSCULAR HEMOGLOBIN 24.8 uug (24.7-32.8); MEAN CORPUSCULAR HGB CONC 32 g/dL (32.3-35.6); MEAN CORPUSCULAR VOLUME 77.3 fL (75.5-95.3); MONOCYTES # (AUTO) 1.3 K/uL (2.0-10.0); MONOCYTES % (AUTO) 12.1 % (0.0-11.0); NEUTROPHILS # (AUTO) 7.8 K/uL (1.8-8.9); NEUTROPHILS % (AUTO) 74.6 % (38.5-71.5); PLATELET COUNT (AUTO) 404 K/uL (179-408); RED BLOOD CELL COUNT(AUTO) 2.86 MIL/uL (3.63-4.92); WHITE BLOOD COUNT (AUTO) 10.4 K/uL (3.8-11.8)
[2018-05-27 07:01] LABS: HEMOGLOBIN 7.1 g/dL (10.9-14.3)
[2018-05-27 07:02] LABS: HEMATOCRIT 22.1 % (31.2-41.9)
[2018-05-27 07:03] LABS: CARBON DIOXIDE 30 mmol/L (21-32); CHLORIDE 102 mmol/L (98-107); CREATININE 0.7 mg/dL (0.6-1.3); GLUCOSE 125 mg/dL (74-106); MAGNESIUM 1.9 mg/dL (1.8-2.4); POTASSIUM 4.6 mmol/L (3.5-5.1); UREA NITROGEN, BLOOD 13 mg/dL (7-18)
[2018-05-27] MEDS: LACTOBACILLUS RHAMNOSUS GG 1 EACH CAPSULE PO SCH ×2 (08:00→21:30)
[2018-05-27] MEDS: AMIODARONE HCL 200 MG TABLET PO SCH (08:00)
[2018-05-27] MEDS: Z GUARD REMEDY PASTE 57 GM TUBE TOP SCH ×2 (08:01→21:30)
[2018-05-27] MEDS ORDERED: FUROSEMIDE 20 MG/2 ML VIAL IV PRN (11:30)
[2018-05-27] MEDS: DOCUSATE SODIUM 100 MG CAPSULE PO SCH (21:30)
[2018-05-28] VITALS (8 sets, daily range): BP systolic 104–123; BP diastolic 49–60
[2018-05-28] MEDS: ZOLPIDEM 5 MG TABLET PO PRN ×2 (01:03→23:46)
[2018-05-28] MEDS: HYDROCODONE/APAP 10-325 MG TABLET PO PRN ×6 (01:03→23:49)
[2018-05-28 06:24] LABS: BASOPHILS # (AUTO) 0.1 K/uL (0.0-8.0); BASOPHILS % (AUTO) 1.3 % (0.0-2.0); EOSINOPHILS # (AUTO) 0.5 K/uL (0.0-0.7); EOSINOPHILS % (AUTO) 6.8 % (0.0-7.0); HEMATOCRIT 22.5 % (31.2-41.9); LYMPHOCYTES # (AUTO) 1.2 K/uL (20.0-40.0); LYMPHOCYTES % (AUTO) 15.5 % (20.5-51.5); MEAN CORPUSCULAR HGB CONC 33 g/dL (32.3-35.6); MEAN CORPUSCULAR VOLUME 78.9 fL (75.5-95.3); MONOCYTES % (AUTO) 12.4 % (0.0-11.0); NEUTROPHILS # (AUTO) 5.1 K/uL (1.8-8.9); PLATELET COUNT (AUTO) 342 K/uL (179-408); RED BLOOD CELL COUNT(AUTO) 2.86 MIL/uL (3.63-4.92); WHITE BLOOD COUNT (AUTO) 7.9 K/uL (3.8-11.8)
[2018-05-28 06:27] LABS: HEMOGLOBIN 7.4 g/dL (10.9-14.3)
[2018-05-28] MEDS: PANTOPRAZOLE SODIUM 40 MG TABLET.DR PO SCH (06:39)
[2018-05-28] MEDS: MORPHINE SULFATE 2 MG/1 ML DISP.SYRIN IV PRN ×3 (06:44→20:22)
[2018-05-28 06:45] LABS: ALANINE AMINOTRANSFERASE 17 U/L (14-59); ALKALINE PHOSPHATASE 394 U/L (50-136); ASPARTATE AMINOTRANSFERASE 27 U/L (15-37); BILIRUBIN,TOTAL 0.4 mg/dL (0.2-1.0); CARBON DIOXIDE 31 mmol/L (21-32); CHLORIDE 103 mmol/L (98-107); CREATININE 0.7 mg/dL (0.6-1.3); GLUCOSE 90 mg/dL (74-106); MAGNESIUM 1.9 mg/dL (1.8-2.4); PHOSPHOROUS 2.7 mg/dL (2.5-4.9); POTASSIUM 4.1 mmol/L (3.5-5.1); UREA NITROGEN, BLOOD 10 mg/dL (7-18)
[2018-05-28] MEDS: LACTOBACILLUS RHAMNOSUS GG 1 EACH CAPSULE PO SCH ×2 (08:53→20:22)
[2018-05-28] MEDS: AMIODARONE HCL 200 MG TABLET PO SCH (08:53)
[2018-05-28] MEDS: Z GUARD REMEDY PASTE 57 GM TUBE TOP SCH (10:01)
[2018-05-28] MEDS: PROTEIN SUPPLEMENT (PROSTAT) 30 ML LIQUID PO SCH ×2 (11:57→17:03)
[2018-05-28] MEDS: DOCUSATE SODIUM 100 MG CAPSULE PO SCH (20:22)
[2018-05-29] MEDS: Z GUARD REMEDY PASTE 57 GM TUBE TOP SCH ×2 (01:03→09:17)
[2018-05-29 03:31] VITALS: BP 131/58
[2018-05-29] MEDS: PANTOPRAZOLE SODIUM 40 MG TABLET.DR PO SCH (06:16)
[2018-05-29] MEDS: HYDROCODONE/APAP 10-325 MG TABLET PO PRN ×4 (06:20→16:30)
[2018-05-29 07:47] LABS: BASOPHILS # (AUTO) 0.1 K/uL (0.0-8.0); BASOPHILS % (AUTO) 1.1 % (0.0-2.0); EOSINOPHILS # (AUTO) 0.7 K/uL (0.0-0.7); EOSINOPHILS % (AUTO) 8.4 % (0.0-7.0); HEMATOCRIT 27.1 % (31.2-41.9); LYMPHOCYTES % (AUTO) 13.2 % (20.5-51.5); MEAN CORPUSCULAR HEMOGLOBIN 26.8 uug (24.7-32.8); MEAN CORPUSCULAR HGB CONC 33 g/dL (32.3-35.6); MEAN CORPUSCULAR VOLUME 81.2 fL (75.5-95.3); MONOCYTES # (AUTO) 0.9 K/uL (2.0-10.0); MONOCYTES % (AUTO) 11.6 % (0.0-11.0); NEUTROPHILS # (AUTO) 5.2 K/uL (1.8-8.9); NEUTROPHILS % (AUTO) 65.7 % (38.5-71.5); PLATELET COUNT (AUTO) 332 K/uL (179-408); RED BLOOD CELL COUNT(AUTO) 3.34 MIL/uL (3.63-4.92); WHITE BLOOD COUNT (AUTO) 7.9 K/uL (3.8-11.8)
[2018-05-29] MEDS: LACTOBACILLUS RHAMNOSUS GG 1 EACH CAPSULE PO SCH (08:07)
[2018-05-29] MEDS: PROTEIN SUPPLEMENT (PROSTAT) 30 ML LIQUID PO SCH ×3 (08:07→16:30)
[2018-05-29] MEDS: AMIODARONE HCL 200 MG TABLET PO SCH (08:07)
[2018-05-29 08:09] LABS: CARBON DIOXIDE 31 mmol/L (21-32); CHLORIDE 105 mmol/L (98-107); CREATININE 0.5 mg/dL (0.6-1.3); GLUCOSE 91 mg/dL (74-106); MAGNESIUM 1.9 mg/dL (1.8-2.4); PHOSPHOROUS 2.9 mg/dL (2.5-4.9); POTASSIUM 4.3 mmol/L (3.5-5.1); UREA NITROGEN, BLOOD 13 mg/dL (7-18)
[2018-05-29 10:51] VITALS: BP 126/56
[2018-05-29] MEDS ORDERED: PROT30LI PO (14:59)
[2018-05-29] MEDS ORDERED: ALBU1.25 NEB (14:59)
[2018-05-29] MEDS ORDERED: DOCU100C36 PO (14:59)
[2018-05-29] MEDS ORDERED: AMIO200T6 PO (14:59)
[2018-05-29] MEDS ORDERED: FERR325T28 PO (14:59)
[2018-05-29] MEDS ORDERED: PANT40TA2 PO (14:59)
[2018-05-29] MEDS ORDERED: ACET325T53 PO (14:59)
[2018-05-29] MEDS ORDERED: HYDR-3326 PO (14:59)
[2018-05-29] MEDS ORDERED: LACT1CAP57 PO (14:59)
[2018-05-29] MEDS ORDERED: RIVA10TA PO (14:59)
[2018-05-29 15:10] VITALS: BP 121/57
== END 2018-05-29 17:45 | DRG 853 ==
LOC: ER 12:14 → TELE 15:11 → CCU 16:37 → TELE 05-21 17:14 → MED 05-22 19:55
PROVIDERS: ADMIT Internal Medicine; ATTEND Internal Medicine
PROC: 0W9B3ZZ Drainage of Left Pleural Cavity, Percutaneous Approach (ICD-10-PCS; principal; 2018-05-19)
PROC: 0W9B3ZZ Drainage of Left Pleural Cavity, Percutaneous Approach (ICD-10-PCS; 2018-05-22)
PROC: 0SR90J9 Replacement of Right Hip Joint with Synthetic Substitute, Cemented, Open Approach (ICD-10-PCS; 2018-05-26)
PROC: 30233N1 Transfusion of Nonautologous Red Blood Cells into Peripheral Vein, Percutaneous Approach (ICD-10-PCS; 2018-05-27)
DX: A41.9 Sepsis, unspecified organism (principal); I50.33 Acute on chronic diastolic (congestive) heart failure; J96.00 Acute respiratory failure, unspecified whether with hypoxia or hypercapnia; J18.9 Pneumonia, unspecified organism; G93.40 Encephalopathy, unspecified; E43 Unspecified severe protein-calorie malnutrition; J44.0 Chronic obstructive pulmonary disease with (acute) lower respiratory infection; M87.851 Other osteonecrosis, right femur; J90 Pleural effusion, not elsewhere classified; D68.59 Other primary thrombophilia; E87.1 Hypo-osmolality and hyponatremia; J98.11 Atelectasis; M16.11 Unilateral primary osteoarthritis, right hip; I48.0 Paroxysmal atrial fibrillation; Z79.01 Long term (current) use of anticoagulants; F17.210 Nicotine dependence, cigarettes, uncomplicated; D53.9 Nutritional anemia, unspecified; K57.90 Diverticulosis of intestine, part unspecified, without perforation or abscess without bleeding; F41.9 Anxiety disorder, unspecified; F32.9 Major depressive disorder, single episode, unspecified; F02.80 Dementia in other diseases classified elsewhere, unspecified severity, without behavioral disturbance, psychotic disturbance, mood disturbance, and anxiety; G30.9 Alzheimer's disease, unspecified; G89.29 Other chronic pain; M54.5 Low back pain; E86.1 Hypovolemia; Z68.24 Body mass index [BMI] 24.0-24.9, adult; F39 Unspecified mood [affective] disorder; Z96.642 Presence of left artificial hip joint
CPT/HCPCS: 32555; 36415; 36600; 70030-TC; 71045; 71250; 72170; 73501; 73503; 73700; 76000; 83605; 83615; 83735; 83986; 84100; 84155; 85018; 85025; 85730; 86850; 86900; 86901; 86920; 87040; 87070; 87077; 87086; 87205; 87400; 93005; 93880; 94640; 97110; 97165; 97530; A4663; C1758; J0282; J0690; J1100; J1170; J1940; J2270; J2405; J2543; J3010; J3370; J3480; J3490; J7030; J7040; J7050; J7060; J7120; P9016-BL; P9021